=== PATIENT | female | born 1955 | race Caucasian/White ===

== ENCOUNTER 2018-02-26 12:46 | Observation (INO) | payer MEDICARE ==
[2018-02-26] MEDS ORDERED: Ondansetron HCl/PF 4 MG/2 ML Vial ONE (13:36)
[2018-02-26] MEDS ORDERED: Nitroglycerin 2% Ointment 1 INCH/1 GM Packet ONE (13:36)
[2018-02-26 13:41] LABS: Troponin I Less than 0.010 ng/mL (< 0.028)
[2018-02-26] MEDS ORDERED: Nitroglycerin 0.4 MG TAB (25 Tab Bottle) PO PRN (15:14)
[2018-02-26] MEDS ORDERED: Ondansetron HCl/PF 4 MG/2 ML Vial IVP PRN (15:14)
[2018-02-26] MEDS ORDERED: Bisacodyl 5 MG TAB PO PRN (15:14)
[2018-02-26] MEDS ORDERED: Dextrose 50% Abboject 50 ML SYRINGE SLOW IVP PRN (15:16)
[2018-02-26] MEDS ORDERED: HumaLOG 300 UNITS/3 ML VIAL SC PRN (15:16)
[2018-02-26] MEDS ORDERED: Dextrose 5% in Water 1,000 ML IV PRN (15:16)
--- NOTE | 2018-02-26 16:03 | HP ---
PRIMARY CARE PROVIDER: Dr. Cece Go. CHIEF COMPLAINT: Chest pain. HISTORY OF PRESENT ILLNESS: Ms. Melton is a pleasant 62-year-old lady who was seen at [facility] on 02/26/2018 following transfer from [place]. Around 6:00 p.m. yesterday evening, she was sitting down watching television when she developed left- sided chest pain. She describes it as sharp, intermittent, 8-9/10 at its worst, no known aggravating or relieving factors. She also reports having a headache for 2 days prior to this chest pain. She also reports having neck and shoulder pain for the 2 days prior to onset of chest pain. She reports that the chest pain was accompanied by sweating and nausea. She denies any shortness of breath. She did not sleep well overnight, because of chest pain kept waking her up. She denies any trauma to th e chest. She took Tylenol #4 during the night and after that she slept for a little while. She denies any fev ers, cough or chills. REVIEW OF SYSTEMS: All other systems reviewed and found to be negative. PAST MEDICAL HISTORY: Multiple sclerosis, fibromyalgia, renal mass that was diagnosed 2 months ago, dyslipidemia, diabetes mellitus type 2, probable hypothyroidism. PAST SURGICAL HISTORY: Cholecystectomy, hysterectomy, left arm surgery, left knee replacement, bilat eral foot surgery for spurs. SOCIAL HISTORY: The patient quit smoking 1 year ago. She denies any alcohol use or recreational uriel g use. FAMILY HISTORY: Lung cancer in her mother and myocardial infarction in her father in his late 60s. ALLERGIES: No known drug allergies. CURRENT MEDICATIONS: These need to be clarified, but appear to include gabapentin, metformin, statin and she also reports taking another cardiac medication. PHYSICAL EXAMINATION: GENERAL: Ms. Melton is awake and alert, not in acute distress. VITAL SIGNS: Blood pressure is 149/73, pulse 55, respiratory rate 20, and oxygen saturation 97% on r oom air. She is afebrile. EYES: No scleral icterus. No conjunctival pallor. ENT: Moist mucosal membranes, no oropharyngeal erythema or exudates. NECK: Supple, nontender, trachea is midline. RESPIRATORY: Accessory muscles of breathing are not active. Chest wall movements are symmetric bila terally. LUNGS: Clear to auscultation without wheeze, rhonchi or crepitations. CARDIOVASCULAR: S1 and S2 are heard, regular. Peripheral pulses palpable. No carotid bruit, no per icardial rub. ABDOMEN: Soft, distended, nontender, bowel sounds heard, no hepatomegaly, no splenomegaly. NEUROLOGIC: Cranial nerves II through XII intact, deep tendon reflexes are 2+. MUSCULOSKELETAL: Power is 5/5 in all four extremities. She has reproducible tenderness over the lef t lower chest wall. SKIN: No rashes or subcutaneous nodules. LYMPHATIC: No cervical lymphadenopathy. PSYCHIATRIC: Normal mood, normal affect. The patient is oriented to person, place, and time. LABORATORY DATA AND IMAGING: Ms. Melton's labs and investigations were reviewed. I reviewed her tammie ctrocardiogram, which shows normal sinus rhythm, no ST changes to suggest an acute coronary syndrome. I also reviewed her chest x-ray, which does not show any pulmonary infiltrates. She also had CT an giogram of the chest, which did not show any pulmonary embolism. She has a left renal mass. She has a normal white count, normal hemoglobin, normal platelet count, sodium normal at 139, normal potassi um of 4.0, normal creatinine of 0.91, unremarkable liver profile, normal BNP of 16.1, normal troponin I x2 and normal calcium. ASSESSMENT AND PLAN: Ms. Melton is a pleasant 62-year-old lady who was seen at [facility] on 02/26/2018. Her problem list includes: 1. Chest pain: Etiology unclear, although based on physical exam, it appears to be having a signifi cant musculoskeletal component. She has already been ruled out for pulmonary embolism. She will be admitted to the hospital for telemetry monitoring and for stress test. If the stress test is normal, she will be discharged home and advised to take analgesics at home. 2. Renal mass: The patient reports that she has seen a specialist for the renal mass. She will be advised to follow up for reevaluation. 3. Diabetes mellitus type 2: We will start the patient on Accu-Cheks and insulin sliding scale. 4. Dyslipidemia: We will continue statin once the drug and dose are clarified. 5. Thyroid abnormalities: We will check TSH. I will resume the patient's home medications once cla rified. 6. Fibromyalgia: Appears to be stable. 7. Multiple sclerosis: Appears to be stable. Many thanks for allowing me to participate in your patient's care. Please feel free to contact me wi th any questions or concerns. LEVEL OF RISK: High. LEVEL OF COMPLEXITY: High.
[2018-02-26 16:39] LABS: Troponin I Less than 0.010 ng/mL (< 0.028)
[2018-02-26] MEDS ORDERED: Morphine 2 MG/ML SYRINGE ONE (17:47)
[2018-02-26] MEDS: Acetaminophen 325 MG TAB PO PRN ×2 (19:22→23:52)
[2018-02-26 19:46] LABS: Troponin I Less than 0.010 ng/mL (< 0.028)
[2018-02-26 20:04] VITALS: BMI 38.2
[2018-02-26] MEDS ORDERED: Gabapentin 300 MG CAP PO SCH (22:15)
[2018-02-26] MEDS ORDERED: Lorazepam 1 MG TAB PO SCH (22:15)
[2018-02-27 05:34] LABS: #Basophils 0.1 thou/uL (0.0-0.2); #Eosinphils 0.3 thou/uL (0.0-0.7); #Lymphocytes 3.7 thou/uL (1.20-3.40); #Neutrophils 4.5 thou/uL (1.40-6.50); %Basophils 1.2 % (0.0-1.0); %Eosinophils 3.2 % (0.0-10.0); %Lymphocytes 38.3 % (21.0-51.0); %Monocytes 10.1 % (0.0-10.0); %Neutrophils 47.2 % (42.0-75.0); Hemoglobin 13.8 g/dL (12.0-16.0); Mean Corpuscular HGB CONC 33.2 g/dL (32.0-36.0); Mean Corpuscular Volume 96.5 fL (78.0-98.0); Mean Platelet Volume 8.1 fL (7.4-10.4); Platelet Count 304 thou/uL (130-400); RBC Distribution Width 12.1 % (11.5-14.5); Red Blood Cell (RBC) Count 4.32 mill/uL (4.20-5.40); White Blood Cell (WBC) Count 9.5 thou/uL (4.8-10.8)
[2018-02-27 05:47] LABS: Anion Gap 12 mmol/L (10-20); BUN (Urea Nitrogen) 10 mg/dL (9.8-20.1); Calc. Creatinine Clearance 78 mL/min (70-130); Calcium 9.3 mg/dL (7.8-10.44); Carbon Dioxide 28 mmol/L (23-31); Chloride 101 mmol/L (98-107); Estimated GFR-MDRD 52; Glucose 128 mg/dL (80-115); Potassium 3.5 mmol/L (3.5-5.1); Sodium 137 mmol/L (136-145)
[2018-02-27] MEDS ORDERED: Enoxaparin Sodium 40 MG/0.4 ML SYRINGE SC SCH (09:00)
[2018-02-27] MEDS ORDERED: Aspirin 325 MG TAB PO SCH (09:00)
--- NOTE | 2018-02-27 11:12 | NM ---
CARDIAC SPECT: CLINICAL HISTORY: 62-year-old female with chest pain, dyslipidemia, diabetes, and family history of coronary artery dis ease. TECHNIQUE: A stress-only myocardial perfusion scan was performed following the intravenous administration of 33 mCi technetium-99m sestamibi. Pharmacologic stress with Lexiscan was monitored and interpreted by Annabel Parker. FINDINGS: Homogeneous tracer distribution is seen in the myocardial segments on the post stress images. GATED SPECT LVEF: 70%. WALL MOTION EXAM: Normal. IMPRESSION: Normal post stress myocardial perfusion scan. POS: SUSU
[2018-02-27] MEDS: Acetaminophen 325 MG TAB PO PRN (11:36)
[2018-02-27 11:58] VITALS: BP 118/56; TEMP 98.7
[2018-02-27] MEDS ORDERED: Regadenoson 0.4 MG/5 ML SYRINGE ONE ×2 (13:14→15:56)
--- NOTE | 2018-02-27 23:44 | DIS ---
DATE OF ADMISSION: 02/26/2018 DATE OF DISCHARGE: 02/27/2018 PRIMARY CARE PROVIDER: Dr. Cece Go. DISCHARGE DIAGNOSIS: Chest pain. Likely musculoskeletal etiology for chest pain. CONDITION OF PATIENT ON THE DAY OF DISCHARGE: Stable. I assessed Ms. Melton on the day of discharge. She reports chest pain is better. Vital signs are stable. S1 and S2 are heard, regular. Lungs are clear to auscultation bilaterally. DISCHARGE MEDICATIONS: Wellbutrin-XL 300 mg daily, gabapentin 300 mg 2 times a day, Ativan 2 mg at bedtime, metformin 500 mg in the morning, omeprazole 40 mg daily, and Zoloft 50 mg daily. HOSPITAL COURSE: Ms. Melton is a pleasant 62-year-old lady who was admitted to [facility] on 02/26/2018 for chest pain following transfer from [place]. Please refer to my history and physical note dated 02/26/[address] angiogram of the chest did not show any pulmonary embolism. She has a left renal mass, which she has known about in the past and will follow up with her primary care provider. At [facility], she underwent nuclear stress test on 02/27. It was a normal post-stress myocardial perfusion scan. Left ventricular ejection fraction was 70%. She improved clinically and is being discharged home in a stable condition. Many thanks for allowing me to participate in your patient's care. Please feel free to contact me with any questions or concerns. She had a normal TSH of 2.8867 during this hospitalization. On the day of discharge, she has normal electrolytes, normal creatinine of 1.07, normal white count, normal hemoglobin and normal platelet count. DISCHARGE DESTINATION: Home. [facility]
== END 2018-02-27 15:28 | disposition home or self-care (01) ==
LOC: ERS 12:46 → ERHOLD 14:58 → 2SW 18:47
PROVIDERS: ADMIT Internal Medicine; ATTEND Internal Medicine
DX: R07.9 Chest pain, unspecified (principal); R11.0 Nausea; N28.89 Other specified disorders of kidney and ureter; G35 Multiple sclerosis; M79.7 Fibromyalgia; E78.5 Hyperlipidemia, unspecified; E11.9 Type 2 diabetes mellitus without complications; Z87.891 Personal history of nicotine dependence; Z79.84 Long term (current) use of oral hypoglycemic drugs; Z79.899 Other long term (current) drug therapy
CPT/HCPCS: 78452; 80048; 82962 ×2; 84443; 84484; 85025; 93005; 93017; 94760; 96372; 96374; 96375; 99285; A9500; G0378 ×2; 36415; 36416; 90471; 90686; 90732; A4216; G0008; G0009; J1650; J2270; J2405; J2785

== ENCOUNTER 2020-09-08 15:26 | Observation (INO) | payer MEDICARE ==
[2020-09-08] MEDS ORDERED: Ondansetron PF 4 MG/2 ML Vial ONE (16:10)
[2020-09-08] MEDS ORDERED: Lorazepam 2 MG/ML VIAL ONE (16:10)
[2020-09-08 16:39] LABS: #Basophils 0.2 thou/uL (0.0-0.2); #Eosinphils 0.4 thou/uL (0.0-0.7); #Lymphocytes 4.7 thou/uL (1.20-3.40); #Neutrophils 7.1 thou/uL (1.40-6.50); %Basophils 1.3 % (0.0-1.0); %Eosinophils 2.8 % (0.0-10.0); %Lymphocytes 35.2 % (21.0-51.0); %Monocytes 7.4 % (0.0-10.0); %Neutrophils 53.2 % (42.0-75.0); Hemoglobin 13.4 g/dL (12.0-16.0); Mean Corpuscular HGB CONC 32.5 g/dL (32.0-36.0); Mean Corpuscular Hemoglobin 30.8 pg (27.0-31.0); Mean Corpuscular Volume 94.9 fL (78.0-98.0); Mean Platelet Volume 7.6 fL (7.4-10.4); Platelet Count 370 thou/uL (130-400); RBC Distribution Width 13.2 % (11.5-14.5); Red Blood Cell (RBC) Count 4.36 mill/uL (4.20-5.40); White Blood Cell (WBC) Count 13.3 thou/uL (4.8-10.8)
[2020-09-08 16:59] LABS: ALT (SGPT) 35 U/L (8-55); AST (SGOT) 45 U/L (5-34); Albumin 3.9 g/dL (3.4-4.8); Alkaline Phosphatase 85 U/L (40-110); Anion Gap 16 mmol/L (10-20); BUN (Urea Nitrogen) 19 mg/dL (9.8-20.1); Bilirubin, Total 0.2 mg/dL (0.2-1.2); Calc. Creatinine Clearance 0 mL/min (70-130); Carbon Dioxide 19 mmol/L (23-31); Chloride 105 mmol/L (98-107); Globulin 3.9 g/dL (2.4-3.5); Glucose 104 mg/dL (80-115); Potassium 4.2 mmol/L (3.5-5.1); Protein, Total 7.8 g/dL (5.8-8.1); Sodium 136 mmol/L (136-145)
[2020-09-08] MEDS ORDERED: Acetaminophen 650 MG Suppository PR PRN (19:30)
[2020-09-08] MEDS: Acetaminophen 325 MG TAB PO PRN (20:45)
[2020-09-08 21:29] LABS: Lactic Acid 1.9 mmol/L (0.5-2.2)
[2020-09-08] MEDS: Melatonin 3 MG TAB PO PRN (21:48)
[2020-09-08 22:00] VITALS: BMI 38.7
[2020-09-08] MEDS ORDERED: Magnesium 2 GM/50 ML 2 GM in Premix Bag 1 BAG IVPB SCH (23:15)
[2020-09-09] MEDS ORDERED: HumaLOG 300 UNITS/3 ML VIAL SC PRN (00:41)
[2020-09-09] MEDS ORDERED: Dextrose 50% Abboject 50 ML SYRINGE SLOW IVP PRN (00:41)
[2020-09-09] MEDS ORDERED: Dextrose 5% in Water 1,000 ML IV PRN (00:41)
[2020-09-09 05:00] LABS: #Basophils 0.1 thou/uL (0.0-0.2); #Eosinphils 0.4 thou/uL (0.0-0.7); #Lymphocytes 4.3 thou/uL (1.20-3.40); #Monocytes 0.8 thou/uL (0.11-0.59); #Neutrophils 5.5 thou/uL (1.40-6.50); %Basophils 1.3 % (0.0-1.0); %Eosinophils 3.8 % (0.0-10.0); %Lymphocytes 38.9 % (21.0-51.0); %Monocytes 6.8 % (0.0-10.0); %Neutrophils 49.2 % (42.0-75.0); Hemoglobin 13.4 g/dL (12.0-16.0); Mean Corpuscular HGB CONC 34.2 g/dL (32.0-36.0); Mean Corpuscular Hemoglobin 32.4 pg (27.0-31.0); Mean Corpuscular Volume 94.9 fL (78.0-98.0); Mean Platelet Volume 7.6 fL (7.4-10.4); Platelet Count 331 thou/uL (130-400); Red Blood Cell (RBC) Count 4.15 mill/uL (4.20-5.40); White Blood Cell (WBC) Count 11.1 thou/uL (4.8-10.8)
[2020-09-09 05:21] LABS: Anion Gap 15 mmol/L (10-20); BUN (Urea Nitrogen) 18 mg/dL (9.8-20.1); Calc. Creatinine Clearance 81 mL/min (70-130); Calcium 8.9 mg/dL (7.8-10.44); Carbon Dioxide 19 mmol/L (23-31); Cardiac Risk 5.3 (Less than 4.5); Chloride 105 mmol/L (98-107); Cholesterol 153 mg/dl (< 200 Desired); Glucose 132 mg/dL (80-115); HDL Cholesterol 29 mg/dL (>60 Neg Risk); LDL Cholesterol, Calculated 80 mg/dL; Magnesium 2.3 mg/dL (1.6-2.6); Potassium 3.7 mmol/L (3.5-5.1); Sodium 135 mmol/L (136-145); Triglycerides 221 mg/dL (Less than 150)
[2020-09-09 09:43] LABS: SARS-CoV-2 PCR NAA for Saliva Not Detected (NotDetected)
[2020-09-09] MEDS: Aspirin 81 mg Enteric Coated Tablet PO SCH (11:16)
[2020-09-09] MEDS: Acetaminophen 325 MG TAB PO PRN (11:17)
[2020-09-09] MEDS ORDERED: traMADol HCl 50 MG TAB PO PRN (12:23)
[2020-09-09] MEDS ORDERED: Lorazepam 2 MG/ML VIAL SLOW IVP SCH (12:30)
[2020-09-09] MEDS ORDERED: Scopolamine 1.5 mg/72 hour Patch TD SCH (14:00)
[2020-09-09] MEDS ORDERED: Acetaminophen/Codeine 30-300mg Tablet PO PRN (18:34)
[2020-09-09] MEDS ORDERED: predniSONE 20 MG TAB PO SCH (18:45)
[2020-09-09] MEDS ORDERED: Atorvastatin Calcium 40 MG TAB PO SCH (21:00)
[2020-09-09] MEDS ORDERED: Lorazepam 1 MG TAB PO SCH (21:00)
[2020-09-09] MEDS: Meclizine HCl 12.5 MG TAB PO PRN (21:21)
[2020-09-09] MEDS: Gabapentin 300 MG CAP PO SCH (21:21)
[2020-09-09] MEDS: Melatonin 3 MG TAB PO PRN (21:21)
[2020-09-10] MEDS: Acetaminophen 325 MG TAB PO PRN (05:39)
[2020-09-10] MEDS ORDERED: Levothyroxine Sodium 50 MCG TAB PO SCH (06:00)
[2020-09-10] MEDS: HumaLOG 300 UNITS/3 ML VIAL SC PRN ×2 (06:24→12:06)
[2020-09-10] MEDS ORDERED: predniSONE 20 MG TAB PO SCH (08:00)
[2020-09-10] MEDS ORDERED: Venlafaxine HCl 25 MG TAB PO SCH (09:00)
[2020-09-10] MEDS: Aspirin 81 mg Enteric Coated Tablet PO SCH (09:15)
[2020-09-10] MEDS: Gabapentin 300 MG CAP PO SCH (09:16)
[2020-09-10] MEDS: Meclizine HCl 12.5 MG TAB PO PRN (09:16)
[2020-09-10] MEDS ORDERED: Amlodipine 5 MG TAB PO SCH (11:45)
[2020-09-10 11:52] VITALS: TEMP 97.5
[2020-09-10 12:08] VITALS: BP 146/67
== END 2020-09-10 14:05 | disposition home or self-care (01) ==
LOC: ERS 15:26 → 2SE 18:44
PROVIDERS: ADMIT Internal Medicine; ATTEND Internal Medicine
DX: R42 Dizziness and giddiness (principal); R29.6 Repeated falls; R11.2 Nausea with vomiting, unspecified; R19.7 Diarrhea, unspecified; G35 Multiple sclerosis; K21.9 Gastro-esophageal reflux disease without esophagitis; M79.7 Fibromyalgia; E78.5 Hyperlipidemia, unspecified; E11.9 Type 2 diabetes mellitus without complications; E03.9 Hypothyroidism, unspecified; F17.210 Nicotine dependence, cigarettes, uncomplicated; Z79.84 Long term (current) use of oral hypoglycemic drugs; Z79.899 Other long term (current) drug therapy; Z90.5 Acquired absence of kidney; Z20.822 Contact with and (suspected) exposure to COVID-19
CPT/HCPCS: 70450; 70551; 71046; 74018; 80048; 80053; 80061; 82962 ×2; 83605; 83630; 83735 ×2; 83880; 84443; 84484 ×2; 85025 ×2; 85652; 86140; 87045; 87046; 87324; 87427 ×2; 87449 ×2; 93005; 93306; 93880; 96374; 96375 ×2; 96376; 97116; 97139 ×2; 99285; G0378 ×4; U0003; U0005; 36415; 36416; 87081; 87635; J1815; J2060; J2405; J3475; J7512

== ENCOUNTER 2021-04-09 12:08 | Emergency (ER) | payer MEDICARE ==
[~2021-04-09 12:08] MED LIST: Iopamidol-370 76% 500 ML 1 ML ONE
[2021-04-09 14:11] LABS: #Basophils 0.1 thou/uL (0.0-0.2); #Eosinphils 0.3 thou/uL (0.0-0.7); #Monocytes 0.9 thou/uL (0.11-0.59); #Neutrophils 5.5 thou/uL (1.40-6.50); %Basophils 1.1 % (0.0-1.0); %Lymphocytes 37.2 % (21.0-51.0); %Neutrophils 50.7 % (42.0-75.0); Hemoglobin 14.8 g/dL (12.0-16.0); Mean Corpuscular HGB CONC 33.2 g/dL (32.0-36.0); Mean Corpuscular Volume 96.5 fL (78.0-98.0); Mean Platelet Volume 7.8 fL (7.4-10.4); Platelet Count 298 thou/uL (130-400); RBC Distribution Width 12.7 % (11.5-14.5); Red Blood Cell (RBC) Count 4.62 mill/uL (4.20-5.40); White Blood Cell (WBC) Count 10.8 thou/uL (4.8-10.8)
[2021-04-09 14:37] LABS: ALT (SGPT) 21 U/L (8-55); AST (SGOT) 15 U/L (5-34); Albumin 4.2 g/dL (3.4-4.8); Alkaline Phosphatase 75 U/L (40-110); Anion Gap 14 mmol/L (10-20); BUN (Urea Nitrogen) 15 mg/dL (9.8-20.1); Bilirubin, Total 0.4 mg/dL (0.2-1.2); Calc. Creatinine Clearance 0 mL/min (70-130); Calcium 9.7 mg/dL (7.8-10.44); Carbon Dioxide 25 mmol/L (23-31); Chloride 102 mmol/L (98-107); Globulin 3.9 g/dL (2.4-3.5); Glucose 86 mg/dL (80-115); Lipase 56 U/L (8-78); Potassium 4.3 mmol/L (3.5-5.1); Protein, Total 8.1 g/dL (5.8-8.1); Sodium 137 mmol/L (136-145)
== END 2021-04-09 17:33 | disposition home or self-care (01) ==
LOC: ERS 12:08
DX: K43.9 Ventral hernia without obstruction or gangrene (principal); E11.9 Type 2 diabetes mellitus without complications; E78.00 Pure hypercholesterolemia, unspecified
CPT/HCPCS: 36415; 74177; 80053; 83690; 84484; 85025; Q9967

== ENCOUNTER 2021-06-25 13:06 | Outpatient (CLI) | payer MEDICARE ==
[2021-06-25 15:33] LABS: #Basophils 0.1 10x3/uL (0.0-0.2); #Eosinphils 0.5 10x3/uL (0.0-0.5); #Monocytes 0.8 10x3/uL (0.0-1.1); #Neutrophils 5.5 10x3/uL (1.5-8.4); %Basophils 1.2 % (0.0-2.0); %Eosinophils 4.3 % (0.0-6.0); %Lymphocytes 35.8 % (18.0-47.0); %Monocytes 7.1 % (0.0-10.0); %Neutrophils 51.1 % (40.0-75.0); Mean Corpuscular HGB CONC 33.3 g/dL (32.0-36.0); Mean Corpuscular Hemoglobin 31.6 pg (27.0-33.0); Mean Platelet Volume 11.5 fl (7.4-10.4); Platelet Count 311 10x3/uL (150-450); RBC Distribution Width 13.9 % (11.5-14.5); Red Blood Cell (RBC) Count 4.43 10x6/uL (3.90-5.03); White Blood Cell (WBC) Count 10.7 10x3/uL (3.5-10.5)
[2021-06-25 15:46] LABS: ALT (SGPT) 25 U/L (8-55); AST (SGOT) 17 U/L (5-34); Albumin 4.2 g/dL (3.4-4.8); Alkaline Phosphatase 81 U/L (40-110); Anion Gap 18 mmol/L (10-20); BUN (Urea Nitrogen) 16 mg/dL (9.8-20.1); Bilirubin, Total 0.4 mg/dL (0.2-1.2); Calc. Creatinine Clearance 0 mL/min (70-130); Calcium 9.4 mg/dL (7.8-10.44); Carbon Dioxide 23 mmol/L (23-31); Chloride 103 mmol/L (98-107); Globulin 3.4 g/dL (2.4-3.5); Glucose 170 mg/dL (80-115); Potassium 4.7 mmol/L (3.5-5.1); Protein, Total 7.6 g/dL (5.8-8.1); Sodium 139 mmol/L (136-145)
[2021-06-26 08:27] LABS: SARS-CoV-2 PCR by NAA Not Detected (NotDetected)
== END 2021-06-25 13:07 | disposition home or self-care (01) ==
LOC: LABBT 13:06
PROVIDERS: ATTEND Specialist
DX: Z01.812 Encounter for preprocedural laboratory examination (principal); K43.2 Incisional hernia without obstruction or gangrene; Z20.822 Contact with and (suspected) exposure to COVID-19
CPT/HCPCS: 80053; 85025; U0003; U0005

== ENCOUNTER 2021-06-27 06:09 | Day surgery (SDC) | payer MEDICARE ==
[2021-06-20 13:55] VITALS: BMI 36.3
[2021-06-27] MEDS ORDERED: Xylocaine 1% w/ Epi 1:100K 10 ML VIAL ONE (06:42)
[2021-06-27] MEDS ORDERED: Bupivacaine 0.25% HCL 30 ML VIAL ONE (06:42)
[2021-06-27] MEDS ORDERED: Ketorolac Tromethamine 30 MG/ML VIAL ONE (06:45)
[2021-06-27] MEDS ORDERED: Gabapentin 300 MG CAP ONE (06:45)
[2021-06-27] MEDS ORDERED: Acetaminophen 500 MG TAB ONE (06:45)
[2021-06-27] MEDS ORDERED: Fentanyl 100 MCG/2 ML VIAL ONE ×3 (07:02→11:26)
[2021-06-27] MEDS ORDERED: Ketamine 50 MG/ML (10ML VIAL) ONE (07:02)
[2021-06-27] MEDS ORDERED: HYDROmorphone 0.5 MG/0.5 ML SYRINGE ONE (07:03)
[2021-06-27] MEDS ORDERED: ceFAZolin 2 GM/Dextrose 50 ML IVPB ONE (07:24)
[2021-06-27] MEDS ORDERED: SUGAMMADEX SODIUM 200 MG/2 ML VIAL ONE (07:31)
[2021-06-27] MEDS ORDERED: Ondansetron PF 4 MG/2 ML Vial ONE (07:31)
[2021-06-27] MEDS ORDERED: Lidocaine 1% PF 5 ML VIAL ONE (07:31)
[2021-06-27] MEDS ORDERED: Dexamethasone 20 MG/5 ML VIAL ONE (07:31)
[2021-06-27] MEDS ORDERED: Rocuronium Bromide 10 MG/ML (10ML VIAL) ONE (07:31)
[2021-06-27] MEDS ORDERED: Glycopyrrolate 0.2 MG/ML 5 ML SYRINGE ONE (07:31)
[2021-06-27] MEDS ORDERED: PROPOFOL 200 MG/20 ML VIAL ONE (07:31)
[2021-06-27] MEDS ORDERED: diphenhydrAMINE 50 MG/ML VIAL ONE (07:31)
[2021-06-27] MEDS ORDERED: Succinylcholine 200 MG/10 ml SYRINGE FS ONE (07:31)
[2021-06-27] MEDS ORDERED: ePHEDrine 50 MG/ML VIAL ONE (07:31)
[2021-06-27] MEDS ORDERED: HYDROmorphone 2 MG/ML VIAL ONE (10:22)
[2021-06-27] MEDS ORDERED: HYDROcodone/Acetaminophen 5/325 mg Tablet ONE (13:07)
== END 2021-06-27 13:43 | disposition home or self-care (01) ==
LOC: SDC 06:09
PROVIDERS: ATTEND Specialist
PROC: 0WUF4JZ Supplement Abdominal Wall with Synthetic Substitute, Percutaneous Endoscopic Approach (ICD-10-PCS; principal; 2021-06-27)
DX: K43.2 Incisional hernia without obstruction or gangrene (principal); K66.0 Peritoneal adhesions (postprocedural) (postinfection); E66.01 Morbid (severe) obesity due to excess calories; Z68.36 Body mass index [BMI] 36.0-36.9, adult; Z79.899 Other long term (current) drug therapy; Z90.5 Acquired absence of kidney
CPT/HCPCS: C1781; J0690; J1100; J1170; J1200; J1885; J2405; J2704; J3010; J3490; S0020

== ENCOUNTER 2022-01-07 21:36 | Emergency (ER) | payer MEDICARE ==
[2022-01-07 22:25] LABS: #Basophils 0.1 thou/uL (0.0-0.2); #Eosinphils 0.3 thou/uL (0.0-0.7); #Lymphocytes 3.4 thou/uL (1.20-3.40); #Monocytes 0.9 thou/uL (0.11-0.59); #Neutrophils 10.7 thou/uL (1.40-6.50); %Basophils 0.6 % (0.0-1.0); %Eosinophils 2.1 % (0.0-10.0); %Neutrophils 69.4 % (42.0-75.0); Hemoglobin 14.1 g/dL (12.0-16.0); Mean Corpuscular HGB CONC 34.1 g/dL (32.0-36.0); Mean Corpuscular Hemoglobin 32.4 pg (27.0-31.0); Mean Corpuscular Volume 94.9 fL (78.0-98.0); Mean Platelet Volume 8.5 fL (7.4-10.4); Platelet Count 280 thou/uL (130-400); RBC Distribution Width 12.4 % (11.5-14.5); Red Blood Cell (RBC) Count 4.35 mill/uL (4.20-5.40); White Blood Cell (WBC) Count 15.5 thou/uL (4.8-10.8)
[2022-01-07] MEDS ORDERED: Ondansetron PF 4 MG/2 ML Vial ONE (22:36)
[2022-01-07 22:47] LABS: ALT (SGPT) 19 U/L (8-55); AST (SGOT) 16 U/L (5-34); Albumin 3.9 g/dL (3.4-4.8); Alkaline Phosphatase 66 U/L (40-110); Anion Gap 16 mmol/L (10-20); BUN (Urea Nitrogen) 22 mg/dL (9.8-20.1); Bilirubin, Total 0.5 mg/dL (0.2-1.2); Calc. Creatinine Clearance 0 mL/min (70-130); Calcium 8.9 mg/dL (7.8-10.44); Carbon Dioxide 23 mmol/L (23-31); Chloride 105 mmol/L (98-107); Estimated GFR 53; Globulin 3.1 g/dL (2.4-3.5); Glucose 115 mg/dL (80-115); Lipase 52 U/L (8-78); Potassium 4.5 mmol/L (3.5-5.1); Sodium 139 mmol/L (136-145)
[2022-01-07 23:32] LABS: Bilirubin Negative (Negative); Blood, Urine Negative (Negative); Clarity Clear (Clear); Glucose, Urine (Dipstick) Normal (Negative); Ketone, Urine Negative (Negative); Leukocyte Negative Leu/uL (Negative); Nitrite Negative (Negative); Protein, Urine (Dipstick) Negative (Neg-Trace); Specific Gravity, Urine 1.016 (1.002-1.036); Urobilinogen Normal mg/dL (Less than 2)
[2022-01-07] MEDS ORDERED: Morphine 4 MG/ML VIAL ONE (23:44)
[2022-01-07 23:59] LABS: SARS-CoV-2 NAA Rapid Test DETECTED (NotDetected)
== END 2022-01-08 01:11 | disposition home or self-care (01) ==
LOC: ERS 21:36
DX: S00.03XA Contusion of scalp, initial encounter (principal); U07.1 COVID-19; R55 Syncope and collapse; G35 Multiple sclerosis; M79.7 Fibromyalgia; F17.200 Nicotine dependence, unspecified, uncomplicated; E78.5 Hyperlipidemia, unspecified; W18.30XA Fall on same level, unspecified, initial encounter; Z79.899 Other long term (current) drug therapy
CPT/HCPCS: 70450; 72125; 74177; 80053; 81003; 83690; 84484; 85025; 87086; 93005; 94760; 96361; 96374; 96375; J2270; J2405; Q9967; U0002